=== PATIENT | female | born 1990 | race Caucasian/White ===

== ENCOUNTER 2017-01-19 12:01 | Emergency (ER) | payer SELFPAY ==
[2017-01-19] MEDS ORDERED: NAPROXEN 250 MG TABLET PO ONE (12:09)
--- NOTE | 2017-01-19 12:13 | ER Document Report ---
ED Medical Screen (RME) - General Stated Complaint: ARM BITE Mode of Arrival: Ambulatory Information source: Patient Notes: 26 y/o F presents to ED c/o abscess to left forearm. Reports noted area of redness and tenderness. Denies fever or drainage. I have greeted and performed a rapid initial assessment of this patient. A comprehensive ED assessment and evaluation of the patient, analysis of test results and completion of the medical decision making process will be conducted by additional ED providers. TRAVEL OUTSIDE OF THE [place] IN LAST 30 DAYS: No - Related Data Allergies/Adverse Reactions: No Known Allergies Allergy (Unverified 01/19/17 12:09) Past Medical History Pulmonary Medical History: Reports: Hx Asthma, Hx Bronchitis Neurological Medical History: Reports: Hx Seizures Psychiatric Medical History: Reports: Hx Anxiety, Hx Depression, Hx Post Traumatic Stress Disorder Past Surgical History: Reports: Hx Abdominal Surgery - 12 sx on abdo in 2007 due to necrotizing fascitits in incision, Hx Section - Immunizations Immunizations up to date: Yes Hx Diphtheria, Pertussis, Tetanus Vaccination: Yes Physical Exam - General General appearance: Appears well, Alert In distress: None - Respiratory Respiratory status: No respiratory distress
--- NOTE | 2017-01-19 14:14 | ER Document Report ---
ED Skin Rash/Insect Bite/Abscs - General Mode of Arrival: Ambulatory Information source: Patient TRAVEL OUTSIDE OF THE [place] IN LAST 30 DAYS: No - HPI Patient complains to provider of: Skin rash/lesion, Tender/swollen area Severity: None Skin Character: Abscess Quality of rash: Painful <JOSE L LUI - Last Filed: 01/19/17 15:02> <KEENAN ARELLANO - Last Filed: 01/19/17 18:50> - General Chief Complaint: Abscess Stated Complaint: ARM BITE Notes: Patient is a 26-year-old female that presents to the emergency department today with complaints of left arm pain. Patient states yesterday she developed pain in the area however when waking up this morning she had surrounding redness to that area. Patient states she has not noticed anything that bit her. (JOSE L LUI) - Related Data Allergies/Adverse Reactions: No Known Allergies Allergy (Unverified 01/19/17 12:09) Past Medical History - General Information source: Patient - Social History Smoking Status: Current Every Day Smoker Cigarette use (# per day): Yes Chew tobacco use (# tins/day): No Frequency of alcohol use: None Drug Abuse: None Lives with: Family Family History: Reviewed & Not Pertinent Patient has suicidal ideation: No Patient has homicidal ideation: No Pulmonary Medical History: Reports: Hx Asthma, Hx Bronchitis Neurological Medical History: Reports: Hx Seizures Psychiatric Medical History: Reports: Hx Anxiety, Hx Depression, Hx Post Traumatic Stress Disorder Past Surgical History: Reports: Hx Abdominal Surgery - 14 sx on abdo in 2007 due to necrotizing fascitits in incision, Hx Section - Immunizations Immunizations up to date: Yes Hx Diphtheria, Pertussis, Tetanus Vaccination: Yes <JOSE L LUI - Last Filed: 01/19/17 15:02> Review of Systems - Review of Systems Constitutional: No symptoms reported EENT: No symptoms reported Cardiovascular: No symptoms reported Respiratory: No symptoms reported Gastrointestinal: No symptoms reported Genitourinary: No symptoms reported Female Genitourinary: No symptoms reported Musculoskeletal: No symptoms reported Skin: See HPI, Other - redness and pain to left forearm Hematologic/Lymphatic: No symptoms reported Neurological/Psychological: No symptoms reported -: Yes All other systems reviewed and negative <JOSE L LUI - Last Filed: 01/19/17 15:02> Physical Exam - General General appearance: Appears well, Alert In distress: None - HEENT Head: Normocephalic, Atraumatic Eyes: Normal Conjunctiva: Normal Extraocular movements intact: Yes - Respiratory Respiratory status: No respiratory distress - Cardiovascular Rhythm: Regular - Abdominal Inspection: Normal Distension: No distension - Extremities General upper extremity: Normal inspection, Normal ROM. No: Edema General lower extremity: Normal inspection, Normal ROM. No: Edema - Neurological Neuro grossly intact: Yes Cognition: Normal Orientation: AAOx4 Speech: Normal - Psychological Associated symptoms: Normal affect, Normal mood <JOSE L LUI - Last Filed: 01/19/17 15:02> <KEENAN ARELLANO - Last Filed: 01/19/17 18:50> - Vital signs Vitals: Temp Pulse Resp BP Pulse Ox 98 F 113 H 20 141/115 H 100 01/19/17 12:09 01/19/17 12:09 01/19/17 12:09 01/19/17 12:09 01/19/17 12:09 (JOSE L LUI) (KEENAN ARELLANO) - Skin Notes: Abscess to left volar forearm with surrounding erythema. Normal sensation and motor function distally. (JOSE L LUI) Course <JOSE L LUI - Last Filed: 01/19/17 15:02> <KEENAN ARELLANO - Last Filed: 01/19/17 18:50> - Re-evaluation Re-evalutation: 01/19/17 18:49 Patient had arm incised and drained under local anesthetic. Patient very anxious and premedicated with Valium. Tolerated well. No. On discharge. Area has been packed. Patient instructed to return in 24-48 hours for reevaluation. Will be started on doxycycline for surrounding erythema. Understands and agrees with plan. Return immediately if there are any worsening or concerning symptoms. Family present for discussion. (KEENAN ARELLANO) - Vital Signs Vital signs: Temp Pulse Resp BP Pulse Ox 98.6 F 108 H 18 97/69 L 97 01/19/17 16:26 01/19/17 16:26 01/19/17 16:26 01/19/17 16:26 01/19/17 16:26 (JOSE L LUI) (KEENAN ARELLANO) Procedures - Incision and Drainage Left Arm Type: Simple Anesthetic type: 1% Lidocaine w/epi Blade size: 11 I&D procedure: Shurclens applied Incision Method: Incision made by scalpel <KEENAN ARELLANO - Last Filed: 01/19/17 18:50> Discharge <JOSE L LUI - Last Filed: 01/19/17 15:02> <KEENAN ARELLANO - Last Filed: 01/19/17 18:50> - Discharge Clinical Impression: Abscess of arm, left, Left arm cellulitis, Anxiety Condition: Stable Disposition: HOME, SELF-CARE Instructions: Post Incision and Drainage, Cellulitis ([facility]), Anxiety ([facility]) Additional Instructions: Please return to the emergency department within 24-48 hours for reevaluation of your wound. Leave the packing in place. Return sooner if you have any concerns. Prescriptions: Doxycycline Monohydrate 100 mg PO BID #30 capsule Lorazepam [Ativan 0.5 mg Tablet] 0.5 mg PO BIDP PRN #14 tab PRN Reason: Tramadol HCl [Ultram 50 mg Tablet] 50 mg PO BIDP PRN #20 tablet PRN Reason: Forms: Return to Work Scribe Attestation: 01/19/17 18:50 I personally performed the services described in the documentation, reviewed and edited the documentation which was dictated to the scribe in my presence, and it accurately records my words and actions. (KEENAN ARELLANO) Scribe Documentation - Scribe Written by Delilah:: Delilah Rush, 01/19/17 1500 acting as scribe for :: José Miguel <JOSE L LUI - Last Filed: 01/19/17 15:02>
[2017-01-19] MEDS ORDERED: DIAZEPAM 5 MG TABLET PO ONE (14:27)
[2017-01-19] MEDS ORDERED: LIDOCAINE 0.5%/EPINEPHRINE INJ 50 ML VIAL INJ ONE (14:31)
[2017-01-19] MEDS ORDERED: TRAMADOL HCL 50 MG TABLET PO ONE (16:18)
[2017-01-19 16:30] VITALS: BP 97/69
== END 2017-01-19 16:35 | disposition home or self-care (01) ==
LOC: ER 12:01
PROC: 0H9EXZZ Drainage of Left Lower Arm Skin, External Approach (ICD-10-PCS; principal; 2017-01-19)
DX: L02.414 Cutaneous abscess of left upper limb (principal); L03.114 Cellulitis of left upper limb; F41.9 Anxiety disorder, unspecified; J45.909 Unspecified asthma, uncomplicated; F17.210 Nicotine dependence, cigarettes, uncomplicated
CPT/HCPCS: 99283; 10060; J3490

== ENCOUNTER 2017-01-21 17:49 | Emergency (ER) | payer SELFPAY ==
[2017-01-21] MEDS ORDERED: ONDANSETRON 4 MG TAB.RAPDIS PO ONE (17:57)
--- NOTE | 2017-01-21 17:58 | ER Document Report ---
ED Medical Screen (RME) - General Stated Complaint: ABSCESS RECHECK/LEFT ARM Mode of Arrival: Ambulatory Information source: Patient Notes: Patient presents to the emergency department for abscess recheck. She reports it still hurts the tramadol they gave her is not helping her just makes her throw up. She has taken ibuprofen without relief of pain. Denies fever, reports her arm is hot. Arm does not feel warm. I have greeted and performed a rapid initial assessment of this patient. A comprehensive ED assessment and evaluation of the patient, analysis of test results and completion of the medical decision making process will be conducted by additional ED providers. TRAVEL OUTSIDE OF THE [place] IN LAST 30 DAYS: No - Related Data Allergies/Adverse Reactions: No Known Allergies Allergy (Unverified 01/19/17 12:09) Past Medical History Pulmonary Medical History: Reports: Hx Asthma, Hx Bronchitis Neurological Medical History: Reports: Hx Seizures Renal/ Medical History: Denies: Hx Peritoneal Dialysis Psychiatric Medical History: Reports: Hx Anxiety, Hx Depression, Hx Post Traumatic Stress Disorder Past Surgical History: Reports: Hx Abdominal Surgery - 14 sx on abdo in 2007 due to necrotizing fascitits in incision, Hx Section - Immunizations Immunizations up to date: Yes Hx Diphtheria, Pertussis, Tetanus Vaccination: Yes Physical Exam - Vital signs Vitals: Temp Pulse Resp BP Pulse Ox 97.9 F 65 20 113/53 L 98 01/21/17 17:54 01/21/17 17:54 01/21/17 17:54 01/21/17 17:54 01/21/17 17:54 Course - Vital Signs Vital signs: Temp Pulse Resp BP Pulse Ox 97.9 F 65 20 113/53 L 98 01/21/17 17:54 01/21/17 17:54 01/21/17 17:54 01/21/17 17:54 01/21/17 17:54
[2017-01-21] MEDS ORDERED: HYDROCODONE/ACETAMINOPHEN 5-325 MG 6 TAB/DSPK PO PRN (18:31)
--- NOTE | 2017-01-21 18:31 | ER Document Report ---
HPI - HPI Patient complains to provider of: wound recheck Pain Level: 4 Context: Patient is a 26-year-old female presents emergency department for wound recheck. Patient had presented with left for arm swelling pain erythema. The elevated area was lanced with minimal drainage and packed. Patient states that she hasn't had anything drained from the site. States that the redness is gone down significantly. She states that she is been taking the tramadol as prescribed but all it does is make her throw up otherwise denies any fever - REPRODUCTIVE Reproductive: DENIES: : - DERM Skin Color: Normal Past Medical History - General Information source: Patient - Social History Smoking Status: Current Every Day Smoker Chew tobacco use (# tins/day): No Frequency of alcohol use: None Drug Abuse: None Family History: Reviewed & Not Pertinent Patient has suicidal ideation: No Patient has homicidal ideation: No Pulmonary Medical History: Reports: Hx Asthma, Hx Bronchitis Neurological Medical History: Reports: Hx Seizures Renal/ Medical History: Denies: Hx Peritoneal Dialysis Psychiatric Medical History: Reports: Hx Anxiety, Hx Depression, Hx Post Traumatic Stress Disorder Past Surgical History: Reports: Hx Abdominal Surgery - 14 sx on abdo in 2007 due to necrotizing fascitits in incision, Hx Section - Immunizations Immunizations up to date: Yes Hx Diphtheria, Pertussis, Tetanus Vaccination: Yes Vertical Provider Document - CONSTITUTIONAL Agree With Documented VS: Yes Exam Limitations: No Limitations General Appearance: WD/WN, No Apparent Distress - INFECTION CONTROL TRAVEL OUTSIDE OF THE [place] IN LAST 30 DAYS: No - RESPIRATORY Respiratory: Breath Sounds Normal, No Respiratory Distress, Chest Non-Tender. negative: Rales, Rhonchi, Wheezing O2 Sat by Pulse Oximetry: 98 - CARDIOVASCULAR Cardiovascular: Regular Rate, Regular Rhythm, No Murmur Pulses: Normal: Radial - NEURO Level of Consciousness: Awake, Alert, Appropriate Motor/Sensory: No Motor Deficit, No Sensory Deficit - DERM Integumentary: Warm, Dry Adult Front & Back Diagram: 1 - area of cellulitis measuring 3x3cm wiht central guillermo wihtout drainage Course - Re-evaluation Re-evalutation: 01/21/17 18:29 There is evidence of surgical marker that indicated previous erythema which has reduced to a much smaller area of about 3 x 3 cm. Patient still in pain is unable to tolerate tramadol. We'll send patient home with pain medication and follow-up in 2-3 days either here or urgent care - Vital Signs Vital signs: Temp Pulse Resp BP Pulse Ox 97.9 F 65 20 113/53 L 98 01/21/17 17:54 01/21/17 17:54 01/21/17 17:54 01/21/17 17:54 01/21/17 17:54 Discharge - Discharge Clinical Impression: Cellulitis Qualifiers: Site of cellulitis: extremity Site of cellulitis of extremity: upper extremity Laterality: left Qualified Code(s): L03.114 - Cellulitis of left upper limb Condition: Good Disposition: HOME, SELF-CARE Additional Instructions: CELLULITIS: You have an infection of your skin and underlying soft tissues called cellulitis. This is due to bacteria, which can enter through any break in the skin, or even through an irritated hair follicle. Untreated, cellulitis will usually worsen. Antibiotics are required. Usually, warm packs or warm soaks, and elevation of the infected area are recommended. You should start getting better within 24 to 36 hours. Most infections respond quickly to the right medication. Follow-up care is important, however, to check for abscess (boil) formation, unsuspected foreign body, or resistant infection. If you develop fever, chills, or if the area of infection is becoming rapidly more swollen or painful, call the doctor at once. ANTIBIOTIC THERAPY: You have been given an antibiotic prescription. It's important that you take all the medication, unless instructed otherwise by your physician. Failure to complete the entire course can result in relapse of your condition. Common side effects of antibiotics include nausea, intestinal cramping, or diarrhea. Women may develop vaginal yeast infections, and babies can get yeast (thrush) in the mouth following the use of antibiotics. Contact your physician if you develop significant side effects from this medication. Allergy to this antibiotic can result in hives, wheezing, faintness, or itching. If symptoms of allergy occur, stop the medication and call the doctor. DOXYCYCLINE: Doxycycline (Vibramycin, Doryx) is an antibiotic of the tetracycline family. This type of drug is useful for infections of the respiratory tract and genital tract, and is sometimes used for intestinal infections. Unlike most tetracyclines, doxycycline can be taken with food. It is longer acting, and (usually) less prone to side effects than regular tetracycline. Tetracycline antibiotics can stain immature teeth and SHOULD NOT BE TAKEN BY CHILDREN, NURSING MOTHERS, OR WOMEN. Tetracyclines can make you more prone to sunburn. Abdominal cramping, nausea, and diarrhea are occasional side effects. Women may experience vaginal yeast infections. Call the doctor at once if you develop hives, itching, shortness of breath , or lightheadedness. ORAL NARCOTIC MEDICATION: You have been given a prescription for pain control. This medication is a narcotic. It's best taken with food, as nausea can result if taken on an empty stomach. Don't operate machinery or drive within six hours of taking this medication. Do not combine this medicine with alcohol, or with any medication which can cause sedation (such as cold tablets or sleeping pills) unless you get permission from the physician. Narcotics tend to cause constipation. If possible, drink plenty of fluids and eat a diet high in fiber and fruits. Please be aware that prescription narcotics also have the potential for abuse. People become addicted to these medications because of the general sense of wellbeing that they induce. This feeling along with a significant reduction in tension, anxiety, and aggression provides a stimulating seductive quality to these drugs. Once your pain is under control, we encourage you to discard your unused narcotics. FOLLOW-UP CARE: If you have been referred to a physician for follow-up care, call the physician s office for an appointment as you were instructed or within the next two days. If you experience worsening or a significant change in your symptoms, notify the physician immediately or return to the Emergency Department at any time for re-evaluation. You can return to the ER in 1-3 days for reevaluation Prescriptions: Hydrocodone/Acetaminophen [[place] 5-325 mg Tablet] 1 tab PO Q6HP PRN #10 tablet PRN Reason: Forms: Return to Work Referrals: [facility] [NO LOCAL MD] - Follow up as needed
[2017-01-21 18:47] VITALS: BP 111/63
== END 2017-01-21 18:47 | disposition home or self-care (01) ==
LOC: ER 17:49
DX: L03.114 Cellulitis of left upper limb (principal); M79.89 Other specified soft tissue disorders; F17.200 Nicotine dependence, unspecified, uncomplicated; J45.909 Unspecified asthma, uncomplicated
CPT/HCPCS: 99282; S0119